=== PATIENT | male | born 1965 | race Caucasian/White ===

== ENCOUNTER 2023-09-23 09:58 | Outpatient (OUT) | payer MEDICARE, SELFPAY ==
--- NOTE | 2023-09-23 10:20 | VEIN_ITS ---
Patient Name: TESHA DANIEL MR#: [id number] : 1965 Exam Date: 09/23/2023 Ordering Doctor: DR WALDO FloresPRonnell RADIOLOGY REPORT PROCEDURE: VEIN CENTER ULTRASOUND VENOUS REFLUX BILATERAL LIMTED COMPARISON: None. INDICATIONS: Pain due to varicose veins of bilateral legs I83.813 TECHNIQUE: Duplex imaging of the lower extremity to assess the deep and superficial venous system for the presence of deep or superficial venous incompetence and to document the location and severity of disease. The study includes evaluation of the great saphenous vein (GSV), anterior accessory saphenous vein (AASV) and small saphenous vein (SSV). Patient scanned in reverse Trendelenburg and standing. FINDINGS: RIGHT LOWER EXTREMITY: Saphenofemoral Junction Reflux: Yes 9.0mm 4.5 sec GSV: Diam (mm) Reflux/ Time (sec) Proximal Thigh 10.8 Yes 4.7 Mid Thigh 4.0 Yes 4.8 Distal Thigh 4.0 Yes 4.8 Prox Calf 3.7 Yes 0.4 Mid Calf 3.3 Yes 0.4 Saphenopopliteal Junction Reflux: 3.3mm Yes 0.5 SSV: Proximal Calf 2.3 Yes 0.2 Mid Calf 4.0 Yes 0.3 AASV: Proximal Thigh 6.1 Yes 2.6 Mid Thigh 2.4 Yes 2.5 Distal Thigh Thrombi: No acute or chronic thrombus. Compressibility: Normal. Flow: Severe deep venous reflux. Preforator: Dist medial lower leg 2.8 mm, 3.4s reflux. Mid medial lower leg 3.5 mm, 1.2s reflux. Tech Note: Incompetent varicose vein mid posterior calf measures 4.0 mm with 0.5s reflux. LEFT LOWER EXTREMITY: Saphenofemoral Junction Reflux: Yes 11.8 mm 2.0 sec GSV: Diam (mm) Reflux/Time (sec) Proximal Thigh 8.5 Yes 0.9 Mid Thigh 5.7 Yes 2.0 Distal Thigh 4.8 Yes 0.6 Prox Calf 4.1 Yes 0.9 Mid Calf 4.0 Yes 0.5 Saphenopopliteal Junction Relux: 2.2 mm Yes 0.3 SSV: Proximal Calf 2.2 Yes 0.4 Mid Calf 2.8 Yes 0.3 AASV: Not present Thrombi: No acute or chronic thrombus. Compressibility: Normal. Flow: Mild deep venous reflux. Behavioral Health Care Coordinator: Distal medial lower leg measures 5.2 mm with 4.7s reflux. Tech Note: Large complex fluid collection lateral/prox knee measures 5.4 x 3.0 x 1.6 cm. Incompetent varicose vein mid medial thigh measures 4.0 mm with 0.9s reflux. Proximal posterior calf varicose vein measures 4.0 mm with 0.9s reflux. CONCLUSION: 1. Severe right and moderate left great saphenous vein venous insufficiency with saphenofemoral junction reflux and dilatation 2. Moderate reflux right anterior accessory saphenous vein with dilatation 3. Severe right and mild left deep vein reflux 4. Bilateral incompetent varicose veins 5. Bilateral incompetent perforating veins 6. Fluid collection lateral left knee likely representing joint effusion Dictated by: Sheldon Negron MD on 09/23/2023 at 11:18 Approved by: Sheldon Negron MD on 09/23/2023 at 11:21
--- NOTE | 2023-09-23 10:20 | VEIN_ITS ---
Patient Name: TESHA DANIEL MR#: [id number] : 1965 Exam Date: 09/23/2023 Ordering Doctor: DR WALDO THOMAS D.P.M. RADIOLOGY REPORT PROCEDURE: [facility] VEIN CENTER - OFFICE VISIT INITIAL COMPARISON: None. PROGRESS NOTES: 59-year-old male who presents with a long history of lower extremity pain swelling and muscle cramps. The patient's left leg pain is significantly worse than the right. The patient describes the pain as aching and burning radiating the pain as a 5 on a scale of 1-10 but occasionally becoming a 10 particularly at night. The patient has had this problem for approximately 10 years, significantly worse in the last year to. The patient's pain is relieved by rest, leg elevation, compression stockings and over the counter ibuprofen. The patient reports that when the weather is hot the veins become markedly dilated. The patient was referred by Dr. Thomas from the wound clinic. The patient denies any signs and symptoms to suggest arterial ischemia. The patient describes a family history significant for varicose veins in his mother. Type 2 diabetes in both parents. The patient does not drink alcohol. The patient is a 30 pack year history of smoking, discontinuing smoking in 2019. No illicit drug use. Past medical history is significant for type 2 diabetes, back pain for which she is on multiple medications, gastroesophageal reflux disease, glaucoma, hyperlipidemia, hypertension, nephrolithiasis and osteoarthritis. History of low back surgery and corneal transplant. No history of deep venous thrombus or pulmonary embolus. See separate history and physical for medication list. No prior treatment for his varicose or spider veins. Nursing notes were reviewed. After history and physical exam I discussed at length the pathophysiology of venous hypertension and possible treatments, therapies and strategies available. We discussed at length the importance of elevating the lower extremities above the level of the heart, increased physical activity and compression stocking use. We discussed surgical interventions including ligation and stripping and phlebectomy. We discussed conservative therapy with compression stockings. Intravenous laser ablation, micro foam chemical ablation and injection sclerotherapy were discussed with the patient. Risks benefits and alternatives were discussed. I did inform the patient that I was concerned about lower extremity arterial flow and recommended bilateral lower extremity arterial ultrasound. If the ultrasound is significantly abnormal we may proceed to a CT angiogram with lower extremity runoff and possible referral to vascular surgery Ultrasound venous reflux study performed the same day was discussed at length with the patient. The report demonstrates severe right and moderate left great saphenous vein venous insufficiency with saphenous femoral junction reflux and dilatation period moderate right anterior accessory saphenous vein venous insufficiency. Bilateral incompetent perforating veins. Bilateral incompetent varicose veins. Severe right and mild left deep vein reflux. PHYSICAL EXAM: The right leg demonstrates moderate diffuse varicose reticular and spider veins. Moderate spider veins on the ankle and foot. The left leg demonstrates extensive varicose veins most significant along the anterior mid thigh wrapping around the lateral knee. Extensive reticular and spider veins in the foot and ankle with a diffuse purple appearance of the left foot. The right leg was warm to touch. The left leg ankle and foot below the knee was asymmetrically cold to the touch. Normal posterior tibial and dorsalis pedis pulses were noted bilaterally. VEIN/VC Facility EST Comprehensive IMPRESSION: 1. Bilateral great saphenous and right anterior accessory saphenous vein venous insufficiency with saphenofemoral junction reflux in dilatation 2. Moderate bilateral incompetent perforating veins and varicose veins, left greater than right 3. Hemosiderin staining with no subcutaneous edema 4. Suspected flow significant arterial disease, left greater than right 5. CEAP: C4a, Ep, Asp, Pr PLAN: 1. Bilateral lower extremity arterial ultrasound 2. Endovenous laser ablation right great saphenous vein followed by left great saphenous vein followed by right anterior accessory saphenous vein 3. Micro foam chemical ablation bilateral incompetent varicose veins 4. Injection sclerotherapy bilateral reticular and spider veins 5. Long-term use of bilateral 20-30 mm thigh-high or knee high compression stockings 6. Good long-term control hypertension 7. Increased physical activity for symptomatic relief Nurse notes, history and physical were reviewed and confirmed, see attached forms. The nurse was present throughout the physical exam and consultation Dictated by: Sheldon Negron MD on 09/23/2023 at 12:11 Approved by: Sheldon Negron MD on 09/23/2023 at 12:18
== END 2023-09-23 09:59 | disposition home or self-care (01) ==
PROVIDERS: PCP Podiatrist Foot & Ankle Surgery; Visit Provider Podiatrist Foot & Ankle Surgery
DX: I83.813 Varicose veins of bilateral lower extremities with pain (principal)
CPT/HCPCS: 93970; G0463

== ENCOUNTER 2023-10-01 09:26 | Outpatient (OUT) | payer MEDICARE, SELFPAY ==
--- NOTE | 2023-10-01 09:27 | VEIN_ITS ---
The [address] [address] Patient Name: TESHA DANIEL MRN: [id number] date: 1965 Sex: M Assigned Patient Location: Current Patient Location: Accession/Order Number: [id number] Exam Date: 10/01/2023 09:27 Report Date: 10/08/2023 08:09 At the request of: LEV FAY Procedure: VC Arterial Scan Shola EXAM: VC Arterial Scan Shola HISTORY: I70.223 Atherosclerosis of [place] arteries of extremities COMPARISON: None. TECHNIQUE: Duplex Doppler evaluation of bilateral lower extremity arteries. FINDINGS: RIGHT LOWER EXTREMITY: Normal triphasic waveform and flow velocity throughout the right lower extremity. Minimal atherosclerotic disease. No arterial aneurysm, occlusion, or significant stenosis. LEFT LOWER EXTREMITY: Normal triphasic waveform and flow velocity throughout the right lower extremity. Minimal atherosclerotic disease. No arterial aneurysm, occlusion, or significant stenosis. VEIN/VC Arterial Scan Shola IMPRESSION: 1. Normal bilateral lower extremity arterial ultrasound. No abnormal or suspicious findings. Electronically authenticated by: ARSH YING Date: 10/08/2023 08:09
== END 2023-10-01 09:27 | disposition home or self-care (01) ==
LOC: VC 09:27
PROVIDERS: PCP Radiology Diagnostic Radiology; Visit Provider Radiology Diagnostic Radiology
DX: I70.223 Atherosclerosis of native arteries of extremities with rest pain, bilateral legs (principal)
CPT/HCPCS: 93925

== ENCOUNTER 2023-10-22 13:17 | Outpatient (OUT) | payer MEDICARE, SELFPAY ==
--- NOTE | 2023-10-22 13:18 | VEIN_ITS ---
The [address] [address] Patient Name: TESHA DANIEL MRN: [id number] date: 1965 Sex: M Assigned Patient Location: Current Patient Location: Accession/Order Number: [id number] Exam Date: 10/22/2023 13:20 Report Date: 10/22/2023 15:58 At the request of: LEV FYA Procedure: VC Endovenous Ablation 1VeinRT EXAMINATION: VC Endovenous Ablation 1VeinRT HISTORY: Pain due to varicose veins of bilateral legs I83.813 The risks and benefits of the procedure had been previously discussed, and were rediscussed at length. Informed written consent was obtained. Dar Lo RN and Dorys Harkins RDMS, RVT assisted. Time out procedure was performed. The right lower extremity was prepared and draped in the usual sterile fashion to allow knee flexion in the sterile field. Duplex ultrasound probe was draped in a sterile cover, sterile transmission gel was used. Venous mapping was performed with the areas of dilation and large tributaries marked. The total length was 61 cm from the entry 4 cm above the ankle to 3 cm below the Saphenofemoral junction. The diameter of the right great saphenous vein ranged from 10.8 mm. A 30 gauge needle and 1% buffered lidocaine was used to anesthetize the entry site. A 4 mm incision was made with a scalpel and the saphenous vein was entered percutaneously under direct ultrasound guidance with a micropuncture set, a single stick was successful in gaining access. A micro-guide wire was inserted and the needle removed. A micro-set including a dilator was inserted over the microwire and the needle and dilator were removed. A guide wire was inserted through the micro-set and guided through the saphenous vein to the saphenofemoral junction. The dilator was removed and an introducer sheath was inserted over the wire until the end of the sheath entered the saphenofemoral junction. The dilator and wire were removed and the 600 micron fiber was introduced and placed and positioned so that it extended beyond the sheath and was 3 cm distal to the saphenofemoral or saphenopopliteal junction. Final position of the fiber was determined by ultrasound guidance and duplex imaging. Tumescent anesthetic was delivered by ultrasound guidance. 350 cc of fluid was delivered along the entire course of the saphenous vein. The solution consisted of 1000 cc of normal saline with 40 mL of 1% lidocaine and 20 mL of sodium bicarbonate. A final positioning check was made. The energy source was turned on by means of the foot pedal and the fiber and sheath were withdrawn. The total number of Joules delivered was 2766. The laser was active for 346 seconds under continuous pulse, average laser use of 8 J. Laser start time: 2:39 PM Laser stop time: 2:45 PM Date: 10/22/2023. A duplex ultrasound revealed compressibility and flow at the saphenofemoral junction immediately after the procedure. Hemostasis at the access site was achieved. The skin incision of the saphenous vein was closed with a 4 x 4. A compression stocking was applied. Postop instructions were given. A follow up appointment was recommended and scheduled. The patient tolerated the procedure well. Electronically authenticated by: ARSH YING Date: 10/22/2023 15:58
[2023-10-22] MEDS: LIDOCAINE HCL 1% 100 MG/10 ML MDV INJ (13:49)
[2023-10-22] MEDS: 0.9 % SODIUM CHLORIDE 500 ML, LIDOCAINE HCL 20 ML, SODIUM BICARBONATE 10 MEQ INJ (13:50)
== END 2023-10-22 13:18 | disposition home or self-care (01) ==
LOC: VC 13:17
PROVIDERS: PCP Radiology Diagnostic Radiology; Visit Provider Radiology Diagnostic Radiology
DX: I83.813 Varicose veins of bilateral lower extremities with pain (principal)
CPT/HCPCS: 36478

== ENCOUNTER 2023-10-29 09:18 | Outpatient (OUT) | payer MEDICARE, SELFPAY ==
--- NOTE | 2023-10-29 09:19 | VEIN_ITS ---
Patient Name: TESHA DANIEL MR#: [id number] : 1965 Exam Date: 10/29/2023 Ordering Doctor: DR LEV FAY M.D. RADIOLOGY REPORT PROCEDURE: VC EXT VENOUS RT LMTD COMPARISON: None. INDICATIONS: Phlebitis of superficial veins of rt lower extremity I80.01 TECHNIQUE: Lower extremity mazariegos scale and Duplex Doppler evaluation of the deep venous system from the inguinal ligament through the calf veins. FINDINGS: REGION: Right lower extremity. THROMBI: Negative for DVT. Heat induced thrombus visualized 17.2 cm from the SFJ. The heat induced thrombus extends from groin to distal calf. COMPRESSIBILITY: Non-compressible segments corresponding to thrombus FLOW: Areas of no flow corresponding to thrombus OTHER: CONCLUSION: 1. Successful post ablation occlusion of right great saphenous vein. Dictated by: Benito Wiley M.D. on 10/29/2023 at 12:01 Approved by: Benito Wiley M.D. on 10/29/2023 at 12:01
--- NOTE | 2023-10-29 09:19 | VEIN_ITS ---
Patient Name: TESHA DANIEL MR#: [id number] : 1965 Exam Date: 10/29/2023 Ordering Doctor: DR LEV FAY M.D. RADIOLOGY REPORT PROCEDURE: FACILITY EST LMTD VEIN CENTER - OFFICE VISIT FOLLOW UP COMPARISON: None. PROGRESS NOTES: The patient reports improvement in leg symptoms. There has been interval reduction in varicosities. The patient has followed our recommendations to walk 20-30 minutes once or twice per day since the procedure. Physical exam demonstrates decrease in varicosities of the leg. Persistent varicosities are identified along the legs bilaterally. Review of the ultrasound performed the same day demonstrates occlusive thrombus extending throughout the treated vein(s), see separate report, consistent with a successful ablation. No thrombus extending into or beyond the saphenofemoral junction. The patient expressed a desire to proceed with treatment of remaining incompetent varicosities. The patient was informed that treatment was a process and would require several procedures/sessions. VEIN/ Facility EST LMTD IMPRESSION: 1. Successful ablation of the right saphenous vein(s). 2. Persistent varicose veins and lower extremity symptoms. PLAN: Endovenous laser ablation of left great saphenous vein. Nurse notes, history and physical were reviewed and confirmed, see attached forms. The nurse was present throughout the physical exam and consultation Dictated by: Benito Wiley M.D. on 10/29/2023 at 12:01 Approved by: Benito Wiley M.D. on 10/29/2023 at 12:02
== END 2023-10-29 09:19 | disposition home or self-care (01) ==
LOC: VC 09:18
PROVIDERS: PCP Radiology Diagnostic Radiology; Visit Provider Radiology Diagnostic Radiology
DX: I80.01 Phlebitis and thrombophlebitis of superficial vessels of right lower extremity (principal)
CPT/HCPCS: 93971; G0463